=== PATIENT | male | born 1985 | race Caucasian/White ===

== ENCOUNTER 2019-09-09 05:38 | Emergency (ER) | payer OTHER ==
[2019-09-09 05:46] VITALS: BP 130/83; PULSE 94; RESP 20; TEMP 98.2
--- NOTE | 2019-09-09 06:24 | ED ---
Back Pain HPI - General Chief Complaint: Back Pain/Injury Stated Complaint: Pulled Muscle Time Seen by Provider: 09/09/19 06:00 Source: patient, RN notes reviewed Mode of arrival: ambulatory Limitations: no limitations - History of Present Illness Initial Comments: 34-year-old male presents emergency Department with chief complaint of low back pain. Patient states his happened approximately one week ago after she he was bent over to tie something and states that he felt a pop in symptoms shift above his right hip, low back region. Patient denies any bowel, bladder incontinence or retention. Patient denies any lower extremity paresthesias or any saddle anesthesias. Patient has no mental abdominal pain. He states his best position is on his abdomen. He states he can stand which does improve his symptoms but he gets tired after a long period of time. Patient has no difficulty ambulating other than feeling some mild discomfort. Patient states he was seen at urgent care was given a shot of Toradol, Solu-Medrol. Patient states he was sent home with 4 days worth of Flexeril and which she states after day 2 the symptoms plateaued. Patient states she's had no improvement since then. Patient denies any fevers or chills no prior abdominal surgeries. - Related Data Previous Rx's Medication Instructions Recorded Ibuprofen [Motrin] 600 mg PO Q8HR PRN #20 tab 09/09/19 Orphenadrine [Norflex] 100 mg PO Q12H #14 tablet.er 09/09/19 predniSONE 50 mg PO DAILY #5 tab 09/09/19 Allergies Allergy/AdvReac Type Severity Reaction Status Date / Time cefaclor [From Ceclor] Allergy Rash/Hives Verified 09/09/19 05:46 Review of Systems ROS Statement: Those systems with pertinent positive or pertinent negative responses have been documented in the HPI. ROS Other: All systems not noted in ROS Statement are negative. Past Medical History Past Medical History: No Reported History History of Any Multi-Drug Resistant Organisms: None Reported Past Surgical History: No Surgical Hx Reported Past Psychological History: ADD/ADHD Smoking Status: Former smoker Past Alcohol Use History: None Reported Past Drug Use History: None Reported General Exam Limitations: no limitations General appearance: alert, in no apparent distress Head exam: Present: atraumatic, normocephalic, normal inspection Eye exam: Present: normal appearance, PERRL, EOMI. Absent: scleral icterus, conjunctival injection, periorbital swelling Neck exam: Present: normal inspection. Absent: tenderness, meningismus, lymphadenopathy Respiratory exam: Present: normal lung sounds bilaterally. Absent: respiratory distress, wheezes, rales, rhonchi, stridor Cardiovascular Exam: Present: regular rate, normal rhythm, normal heart sounds. Absent: systolic murmur, diastolic murmur, rubs, gallop, clicks GI/Abdominal exam: Present: soft, normal bowel sounds. Absent: distended, tenderness, guarding, rebound, rigid Extremities exam: Present: other (Lower extremities neurovascular intact pedal pulses, equal strength 5/5 minimal discomfort with right straight leg raise) Back exam: Present: normal inspection, full ROM, tenderness (Mild tenderness along the right SI region, right lower lumbar paraspinal muscles), muscle spasm, paraspinal tenderness. Absent: CVA tenderness (R), CVA tenderness (L), vertebral tenderness Neurological exam: Present: alert, oriented X3, CN II-XII intact, reflexes normal. Absent: motor sensory deficit Skin exam: Present: warm, dry, intact, normal color. Absent: rash Course Vital Signs 09/09/19 05:42 Temperature 98.2 F Pulse Rate 94 Respiratory 20 Rate Blood Pressure 130/83 O2 Sat by Pulse 97 Oximetry Medical Decision Making - Medical Decision Making 34-year-old male presented unresponsive for low back pain. Patient is tenderness over the SI joint. This consistent with sacroiliitis. Patient has no red flag symptoms. His neurovascular intact will be discharged in stable condition with pain control we discussed the a stretching and exercises. Disposition Clinical Impression: Strain of lumbar region, Sacroiliitis Disposition: HOME SELF-CARE Condition: Stable Instructions (If sedation given, give patient instructions): Sacroiliitis (ED), Lower Back Exercises (ED) Additional Instructions: Please return to the Emergency Department if symptoms worsen or any other concerns. Prescriptions: Ibuprofen [Motrin] 600 mg PO Q8HR PRN #20 tab PRN Reason: Pain Orphenadrine [Norflex] 100 mg PO Q12H #14 tablet.er predniSONE 50 mg PO DAILY #5 tab Is patient prescribed a controlled substance at d/c from ED?: No Referrals: None,Stated [Primary Care Provider] - 1-2 days Loc Dean DO [Doctor of Osteopathic Medicine] - 1-2 days Time of Disposition: 06:57
--- NOTE | 2019-09-09 06:38 | XR ---
EXAMINATION TYPE: XR lumbosacral spine min 4V DATE OF EXAM: 09/09/2019 COMPARISON: NONE HISTORY: Back pain TECHNIQUE: 5 views FINDINGS: Lumbar vertebra have normal spacing and alignment. Posterior elements are intact. Sacroilia c joints appear normal. There is no compression fracture. IMPRESSION: Normal lumbar spine.
[2019-09-09] MEDS ORDERED: ACET/COD 300 MG/30 MG STARTER PACK 6 TAB BTL PO STA (06:55)
== END 2019-09-09 07:08 | disposition home or self-care (01) ==
LOC: EC 05:38
DX: S39.012A Strain of muscle, fascia and tendon of lower back, initial encounter (principal); M46.1 Sacroiliitis, not elsewhere classified; Z88.1 Allergy status to other antibiotic agents; Z87.891 Personal history of nicotine dependence; X50.0XXA Overexertion from strenuous movement or load, initial encounter; Y93.89 Activity, other specified
CPT/HCPCS: 72110; 99283